=== PATIENT | female | born 1950 | race Caucasian/White ===

== ENCOUNTER 2016-07-10 09:58 | Emergency (ER) | payer OTHER ==
--- NOTE | ~2016-07-10 | CR169 ---
[facility] A Service of [facility] & [facility] RADIOLOGY TEXT RESULTS PATIENT: FREDDY ARIAS LOCATION: SED : 46 UNIT #: [id number] AGE: [address]: Medhat Goode MD SEX: F ORDER DR: [id number] [place] [id number] E MR#: [id number] Acc #: [id number] NAME: FREDDY ARIAS : 1950 SEX: F STUDY DATE/TIME: 07/10/2016 10:17 UNIT: SED ROOM: STUDY DESCRIPTION: CR Knee 2 Views Lt Attending Physician: Medhat Goode M.D. Ordering Physician: Medhat Goode M.D. Primary Care Physician: Ortega Whitten M.D. MEDICAL IMAGING REPORT This report is preliminary unless electronic signature is present. EXAM Left knee HISTORY Knee pain since injuring the knee walking on a treadmill 3 days ago. TECHNIQUE 3 views of the knee were obtained. FINDINGS There is very mild medial compartment narrowing. There is mild lateral patellar subluxation with a lateral patellar tilt. There is no evidence of fracture or effusion. No osteochondral fragments are seen. IMPRESSION Mild osteoarthritic changes with medial compartment narrowing. Mild patellofemoral joint arthrosis in the lateral facet with lateral patellar subluxation. No acute bony abnormalities are seen. Dictated by... Ortega Patterson M.D. THIS IS AN ELECTRONICALLY VERIFIED REPORT Ortega Patterson M.D. at 07/13/2016 9:46 AM AGUILA/daja TD: 07/10/2016 22:06 JOB #: [id number] MEDICAL IMAGING REPORT Page 1 of 1
[~2016-07-10 09:58] MED LIST: AMOXICILLIN PO; AMOXICILLIN875 MG PO; ASPIRIN PO; BACLOFEN10 MG PO; CERTAGEN PO; DICLOFENAC PO; FLEXERIL10 MG PO; HYDROCODON-ACE1 EAC7 PO; NEURONTIN300 MG PO; VOLTAREN50 MG PO; XANAX2 MG PO
== END 2016-07-10 11:17 | disposition home or self-care (01) ==
LOC: SED 09:58
DX: S83.92XA Sprain of unspecified site of left knee, initial encounter (principal); M17.12 Unilateral primary osteoarthritis, left knee; I25.2 Old myocardial infarction; X58.XXXA Exposure to other specified factors, initial encounter; Y93.A1 Activity, exercise machines primarily for cardiorespiratory conditioning; Y92.009 Unspecified place in unspecified non-institutional (private) residence as the place of occurrence of the external cause
CPT/HCPCS: 29530; 73560; 99283

== ENCOUNTER → 2016-09-27 | Outpatient (CLI) | payer OTHER ==
--- NOTE | ~2016-09-27 | BD1 ---
[facility] A Service of [facility] RADIOLOGY TEXT RESULTS PATIENT: FREDDY ARIAS LOCATION: [facility] : 46 UNIT #: [id number] AGE: [address]: TEENA MANUEL SEX: F ORDER DR: [id number] [facility] [address] [place], [place] [address] [id number] O MR#: [id number] Acc #: [id number] NAME: FREDDY ARIAS : 1950 SEX: F STUDY DATE/TIME: 09/27/2016 12:25 UNIT: [facility] ROOM: STUDY DESCRIPTION: BD Dexa Bone Dens 1+ Site Attending Physician: Teena Manuel Referring Physician: Teena Manuel Ordering Physician: Physician Non-Staff Primary Care Physician: Ortega Whitten M.D. MEDICAL IMAGING REPORT This report is preliminary unless electronic signature is present EXAM DXA scan, 09/27/2016 HISTORY Status post menopause with no hormone replacement therapy. Osteopenia. Rheumatoid arthritis. Smoking history for 20 years. FINDINGS Bone mineral density in the lumbar spine from L1-L4 is 0.99 g/cm2 which is 0.5 standard deviations below the mean when compared to the young adult reference population which is within the range of normal. This is 1.4 standard deviations above the mean when compared to the age-matched population. Bone mineral density in the left femoral neck was 0.841 g/cm2 which is 0.1 standard deviations below the mean when compared to the young adult reference population which is within the range of normal. This is 1.6 standard deviations above the mean when compared to the age-matched population. IMPRESSION Bone mineral density in the lumbar spine and the left hip within the range of normal. Dictated by... Sean Macias M.D. THIS IS AN ELECTRONICALLY VERIFIED REPORT Sean Macias M.D. at 09/28/2016 9:56 AM Erika TD: 09/27/2016 16:49 JOB #: [id number] [facility] A Service of [facility] RADIOLOGY TEXT RESULTS PATIENT: FREDDY ARIAS LOCATION: [facility] : 46 UNIT #: [id number] AGE: [address]: TEENA MANUEL SEX: F ORDER DR: MEDICAL IMAGING REPORT Page 1 of 1 COPY
--- NOTE | ~2016-09-27 | MY29 ---
[facility] A Service of [facility] RADIOLOGY TEXT RESULTS PATIENT: FREDDY ARIAS LOCATION: [facility] : 46 UNIT #: [id number] AGE: [address]: TEENA MANUEL SEX: F ORDER DR: [id number] [facility] [address] [place], [place] [address] [id number] O MR#: [id number] Acc #: [id number] NAME: FREDDY ARIAS : 1950 SEX: F STUDY DATE/TIME: 09/27/2016 12:33 UNIT: [facility] ROOM: STUDY DESCRIPTION: MY STONEY SCREENING W/ CAD BILAT Attending Physician: Teena Manuel Referring Physician: Teena Manuel Ordering Physician: Physician Non-Staff Primary Care Physician: Ortega Whitten M.D. MEDICAL IMAGING REPORT This report is preliminary unless electronic signature is present EXAM Digital screening mammogram 09/27/16 [facility]. HISTORY 65-year-old woman, positive family history, mother age 62. Annual screen. COMPARISON Mammograms date to 03/23/06 with most recent 08/27/15. FINDINGS Digital imaging of each breast was completed utilizing a two-view examination of each breast in craniocaudal and mediolateral-oblique projections. Review and interpretation of digital mammograms include a second review in conjunction with FDA-approved CAD device. There is a normal parenchymal presentation bilaterally consistent with the patient's age. There are no breast masses imaged and no parenchymal asymmetry is visualized. There are no suspicious microcalcifications and I see no focal architectural disturbance. IMPRESSION Negative screening digital mammogram. One-year followup recommended. Patients over the age of 40 are entered into a reminder system with target due date for the next mammogram. A result letter will also be sent to the patient. BIRADS: 1 Negative ADDENDUM Breast parenchyma is fatty replaced. Dictated by... Daniel Caal M.D. [facility] A Service [facility] RADIOLOGY TEXT RESULTS PATIENT: FREDDY ARIAS LOCATION: [facility] : 46 UNIT #: [id number] AGE: [address]: TEENA MANUEL SEX: F ORDER DR: THIS IS AN ELECTRONICALLY VERIFIED REPORT Daniel Caal M.D. at 09/28/2016 2:38 PM Nikolas TD: 09/28/2016 12:21 JOB #: [id number] MEDICAL IMAGING REPORT Page 1 of 1 COPY
== END | disposition home or self-care (01) ==
LOC: CWCC 11:44
DX: Z12.31 Encounter for screening mammogram for malignant neoplasm of breast (principal); Z80.3 Family history of malignant neoplasm of breast; Z13.820 Encounter for screening for osteoporosis; Z78.0 Asymptomatic menopausal state
CPT/HCPCS: 77080; G0202